=== PATIENT | male | born 1995 | race African-American/Black ===

== ENCOUNTER 2017-11-28 17:41 | Emergency (ER) | payer SELFPAY ==
[~2017-11-28] VITALS: Ht 195.6 cm; Wt 79.0 kg
[2017-11-28] MEDS ORDERED: MOTRIN600 MG PO (19:37)
[2017-11-28] MEDS ORDERED: NORCO 5/3251 TABLET PO (19:37)
[2017-11-28 20:35] VITALS: BP 130/71
== END 2017-11-28 20:38 | disposition home or self-care (01) ==
LOC: EME 17:41
PROC: 2W3RX1Z Immobilization of Left Lower Leg using Splint (ICD-10-PCS; principal; 2017-11-28)
DX: S93.402A Sprain of unspecified ligament of left ankle, initial encounter (principal); X50.9XXA Other and unspecified overexertion or strenuous movements or postures, initial encounter; Y93.67 Activity, basketball; F17.200 Nicotine dependence, unspecified, uncomplicated
CPT/HCPCS: 73610; 73630; 99281; 99283